=== PATIENT | male | born 1990 | race Hispanic/Latino ===

== ENCOUNTER 2018-02-09 19:58 | Emergency (ER) | payer OTHER ==
[~2018-02-09] VITALS: Ht 172.7 cm; Wt 128.0 kg
[2018-02-09 20:51] LABS: HEMATOCRIT 43.6 % (39.0-50.0); HEMOGLOBIN 14.8 g/dl (14.0-18.0); IMMATURE GRANULOCYTES 0.3 % (0.0-5.0); MEAN CELL VOLUME 90.8 fL CALC (80.0-100.0); MEAN CORPUSCULAR HGB 30.8 pG CALC (26.0-32.0); MEAN CORPUSCULAR HGB CONC 33.9 g/L CALC (32.0-36.0); NEUT# 2.73 thou/uL (1.82-7.42); RED BLOOD COUNT 4.8 mill/uL (4.70-6.10); RED CELL DISTRI WIDTH 12.3 % (11.5-15.5)
[2018-02-09] MEDS ORDERED: ROBITUSSIN AC10 ML PO (21:21)
[2018-02-09 21:31] VITALS: BP 129/84
== END 2018-02-09 21:31 | disposition home or self-care (01) | DRG 866 ==
LOC: ED 19:58
PROVIDERS: Family Medicine
DX: B34.9 Viral infection, unspecified (principal)